=== PATIENT | female | born 2000 | race African-American/Black ===

== ENCOUNTER 2020-01-02 18:48 | Emergency (ER) | payer OTHER ==
[~2020-01-02] VITALS: Ht 157.5 cm; Wt 90.7 kg
[2020-01-02 19:22] LABS: CALCIUM 9.5 mg/dL (8.5-10.1); CREATININE 0.9 mg/dL (0.6-1.0); POTASSIUM 4.4 mmol/L (3.5-5.1)
[2020-01-02 19:23] LABS: ABSOLUTE NEUTROPHILS 4.3 thou/uL (1.4-8.2); BASOPHILS 1.2 % (0.0-2.0); EOSINOPHILS 0.9 % (0.0-3.0); HEMATOCRIT 44.8 % (37.0-47.0); LYMPHOCYTES 25.9 % (24.0-44.0); MCH 26.8 pg (26.0-34.0); MCHC 33.4 g/dL (28.0-37.0); MCV 80.3 fL (80.0-100.0); MONOCYTES 8.4 % (1.0-8.0); PLATELET COUNT 227 thou/uL (150-400); POLYS 63.6 % (36.0-66.0); RBC 5.58 mil/uL (4.20-5.00); RDW 12.9 % (10.5-14.5); WBC 6.8 thou/uL (4.0-11.0)
[2020-01-02] MEDS ORDERED: PROAIR HFA8.5 GM INH (19:54)
[2020-01-02 19:59] VITALS: BP 154/80
--- NOTE | 2020-01-03 08:00 | EKG ---
[facility] [place] [address] ELECTROCARDIOGRAM REPORT Name: MARINA REDMONDAYUSH Room #: DEP [facility]usef[facility]usef#: [id number] Admission: 01/02/20 Attend Phys: Discharge: 01/02/20 Date of : 89 Report #: [id number] THIS REPORT FOR: cc: TUTU - [facility] family physician/PCP TUTU - [place] family physician/PCP Diomedes Crawford MD ~ THIS REPORT FOR: //name// [facility] ED Test Date: 2020-01-02 Test Time: 18:47:47 Pat Name: JACKELYN REDMOND Department: Room: Gender: Piper Installer: [facility] : 2000 Requested By: Esa Rasheed Order Number: [id number] MD: Diomedes Crawford Measurements Intervals Epes Rate: 109 P: 62 MT: 142 QRS: 38 QRSD: 81 T: 34 QT: 311 QTc: 419 Interpretive Statements Sinus tachycardia Multiple premature complexes, vent & supraven No previous ECG available for comparison Electronically Signed On 01-03-2020 7:59:31 CDT by Diomedes Crawford [email or web address] <ELECTRONICALLY SIGNED> By: Diomedes Crawford MD 01/03/20 [id number] Diomedes Crawford MD /WAI
== END 2020-01-02 20:08 | disposition home or self-care (01) ==
LOC: ER 18:48
PROVIDERS: Emergency Medicine
DX: R07.89 Other chest pain (principal); F41.0 Panic disorder [episodic paroxysmal anxiety]; G43.909 Migraine, unspecified, not intractable, without status migrainosus